=== PATIENT | female | born 1995 | race Caucasian/White ===

== ENCOUNTER → 2017-08-22 10:40 | Outpatient (CLI) | payer MEDICAID, SELFPAY ==
--- NOTE | 2017-08-22 10:40 | DT_ITS ---
This patient was seen during an EMR downtime August 22, 2017 - August 29, 2017. This patient may have a combination of paper and electronic documentation or all paper documentation. All documentation is viewable within the e-chart portion of [employer] for each patient visit.
[2017-09-07 10:45] LABS: HPV Reflexed? NOT INDICATED
== END ==
PROVIDERS: Visit Provider Obstetrics & Gynecology
DX: Z12.4 Encounter for screening for malignant neoplasm of cervix (principal)
CPT/HCPCS: 88175; G0145

== ENCOUNTER → 2018-09-12 17:21 | Outpatient (CLI) | payer MEDICAID, SELFPAY ==
[2018-09-27 17:25] LABS: HPV HC, High Risk Positive (Negative)
[2018-10-01 14:32] LABS: HPV Reflexed? YES, CHARGE PATIENT
== END ==
PROVIDERS: Family Provider Nurse Practitioner; PCP Nurse Practitioner; Referring Provider Obstetrics & Gynecology; Visit Provider Obstetrics & Gynecology
DX: Z12.4 Encounter for screening for malignant neoplasm of cervix (principal)
CPT/HCPCS: 87624; 88175; G0145

== ENCOUNTER → 2019-09-28 | Outpatient (CLI) | payer MEDICAID, SELFPAY ==
[2015-06-20 01:48] VITALS: BMI 33.5
[2019-10-05 01:04] LABS: Trich. Vag By Nucleic Acid AMP N
[2019-10-05 18:05] LABS: HPV Reflexed? NOT INDICATED
== END | disposition home or self-care (01) ==
LOC: LABSPEC 10:04
PROVIDERS: PCP Nurse Practitioner; Visit Provider Obstetrics & Gynecology
DX: Z12.4 Encounter for screening for malignant neoplasm of cervix (principal)
CPT/HCPCS: 87491; 87591; 88175; G0145

== ENCOUNTER → 2019-11-01 13:28 | Outpatient (CLI) | payer MEDICAID, SELFPAY ==
[2015-06-20 01:48] VITALS: BMI 33.5
[2019-11-03 03:06] LABS: Chlamydia By Nucleic Acid AMP Negative (Negative)
[2019-11-03 08:20] LABS: Gonococcus By Nucleic Acid AMP Negative (Negative)
== END ==
PROVIDERS: PCP Nurse Practitioner; Visit Provider Obstetrics & Gynecology
DX: Z11.3 Encounter for screening for infections with a predominantly sexual mode of transmission (principal)
CPT/HCPCS: 87491; 87591

== ENCOUNTER → 2019-11-16 11:47 | Outpatient (CLI) | payer MEDICAID, SELFPAY ==
[2015-06-20 01:48] VITALS: BMI 33.5
[2019-11-16 12:13] LABS: Absolute Lymphocyte Count 1.71 X10^3/uL (0.83-4.51); Absolute Neutrophil Count 6.2 X10^3/uL (2.0-7.7); Basophil# 0.02 X10^3/uL; Basophil% 0.2 % (0-1); Eosinophil# 0.06 X10^3/uL; Eosinophils% 0.7 % (0-5); Hematocrit 34.6 % (37-47); Hemoglobin 11.9 g/dL (12.0-15.0); Lymphocyte # 1.71 X10^3/ul (4.0); Lymphocyte % 19.6 % (19-41); Mean Corp Hgb Conc 34.4 g/dL (32-36); Mean Corpuscular Hgb 30.3 pg (27.0-32.0); Mean Platelet Vol. 10.4 fl (6.2-12.0); Monocyte# 0.69 X10^3/uL; Monocyte% 7.9 % (0-10); NRBC Flagged by Analyzer 0 % (0-5); Neutrophil # 6.23 X10^3/uL (2.7-7.7); Neutrophil % 71.3 % (47-70); Platelet Count 254 K/mm3 (150-450); RBC Distribution Width CV 11.5 % (11.6-14.6); RBC Distribution Width SD 37.1 fl (35.1-43.9); Red Blood Count 3.93 M/mm3 (4.2-5.4); White Blood Count 8.7 K/mm3 (4.4-11.0)
[2019-11-16 12:22] LABS: Color, Urine Yellow (Yellow); Glucose, Dipstick Normal (Normal); Ketone-Dipstick Negative (Negative); Leukocyte Esterase-Dipstick Negative /ul (Negative); Nitrite-Dipstick Negative (Negative); Occult Blood-Urine Negative /ul (Negative); Protein-Dipstick Negative (Negative); Specific Gravity, Urine 1.015 (1.002-1.030); Urine Bilirubin Dipstick Negative (Negative); Urine Clarity Sl. Cloudy (Clear); Urine Urobilinogen 1 mg/dl (Normal)
[2019-11-16 12:47] LABS: Amphetamine Urine VISTA NEGATIVE (<1000 ng/mL); Barbiturate Urine VISTA NEGATIVE (< 200 ng/mL); Benzodiazepine Urine VISTA NEGATIVE (< 200 ng/mL); Cocaine Urine VISTA NEGATIVE (< 300 ng/mL); Ecstacy Urine VISTA NEGATIVE (< 500 ng/mL); Methadone Urine VISTA NEGATIVE (< 300 ng/mL); PCP Urine VISTA NEGATIVE (< 25 ng/mL); THC Urine VISTA NEGATIVE (< 50 ng/mL); Vista UDS pH Range 7
[2019-11-16 12:53] LABS: Thyroid Stim Hormone (TSH) 0.65 uIU/mL (0.358-3.74)
[2019-11-16 13:55] LABS: HIV - WCH Non-Reactive (Nonreactive); Hepatitis B Surface Antigen Non-Reactive (Nonreactive); Hepatitis C Antibody Non-Reactive (Nonreactive); Rubella IgG 236.6 IU/mL
[2019-11-22 06:28] LABS: Prenatal RPR NONREACTIVE (NONREACTIVE)
== END ==
PROVIDERS: PCP Nurse Practitioner; Visit Provider Obstetrics & Gynecology
DX: Z34.81 Encounter for supervision of other normal pregnancy, first trimester (principal)
CPT/HCPCS: 36415; 80307; 81002; 84443; 85025; 86703; 86762; 86803; 87340

== ENCOUNTER → 2020-01-10 | Outpatient (CLI) | payer MEDICAID, SELFPAY ==
[2015-06-20 01:48] VITALS: BMI 33.5
--- NOTE | 2020-01-10 | IMM_PTH ---
PATIENT: TWIN HANNA LOC: [facility] U#:[id number] AGE/SX: 24/F ROOM: RE01/10/[address]: Dr. Anastasiya Bundy DO : 1995 BED: DIS: 01/10/2020 SPEC #: [id number] RECD: 01/14/20 13:29 STATUS: ASTRID REQ #: [id number] MAIDA: 01/10/20 00:[address]: Anastasiya Bundy DEPT: IMMUNOHISTOCHEMISTRY RECD BY: Diana Barragan ENTERED: 01/14/20 13:32 SP TYPE: IMMUNO OTHR DR: Kiara Amaral, EKG TECHNICIAN-C Tissues: Uterine cervix, NOS Procedures: p16 (initial) KI-67 (add) PHYSICIAN & INSTITUTION [place] [id number] SPECIMEN INFORMATION: Tissue Source: Cervical biopsy 6 o'clock Clinical Info: [facility] Specimen Number: [id number] CPT code: 22211, 39404 METHODOLOGY: Deparaffinized sections of prefer/formalin-fixed tissue or PAP/DQ stained slides are incubated with monoclonal/polyclonal antibodies/oligonucleotide probes. Localization is made via biotin free immunoperoxidase method. Appropriate controls are performed and reacted as expected. Results on target cell population are indicated in the following table: RESULTS: ANTIBODY / CLONE RESULT P16 (E6H4) negative Ki-67 (30-9) negative These tests were developed and their performance characteristics determined by [facility]. They may not have been cleared or approved by the U.S. Food and Drug Administration. The FDA has determined that such clearance or approval is not necessary. The above immunohistochemical/dualISH markers are ordered and reviewed by the Pathologist. INTERPRETATION: Cervix, 6 o'clock, biopsy: Focal minimal changes suspicious for HPV cytopathic effects. ASAD:francisca 01/15/20
--- NOTE | 2020-01-10 12:05 | CER_PTH ---
PATIENT: TWIN HANNA LOC: [facility] #:[id number] AGE/SX: 24/F ROOM: RE01/10/[address]: Dr. Anastasiya Bundy, : 1995 BED: DIS: 01/10/2020 SPEC #: [id number] RECD: 01/10/20 15:00 STATUS: ASTRID KAE #: [id number] MAIDA: 01/10/20 12:[address]: Anastasiya Bundy DEPT: SURGICAL PATHOLOGY RECD BY: Mei Isabel ENTERED: 01/11/20 07:35 SP TYPE: CERV OTHR DR: Kiara Amaral, TEXTILE TECHNICAL OFFICER-C Tissues: Uterine cervix, NOS Procedures: Surgery Specimen Level IV HEADER OPERATION: Colposcopy PRE-OP DIAGNOSIS: LGSIL pap, 16 weeks TISSUE SUBMITTED: Cervical biopsy 6 o'clock MICROSCOPIC DIAGNOSIS Cervix, 6 o'clock, biopsy: Focal minimal changes suspicious for HPV cytopathic effects. Acute and chronic inflammation and decidual changes. See comment. ASAD:francisca 01/14/20 COMMENT Results for immunohistochemistry ([id number]) for surrogate marker (p16) will be reported separately. The specimen predominantly consists of endocervical mucosa with scant ectocervical mucosa. This case has been reviewed in consultation who concurs with the above diagnsosi. MICROSCOPIC DESCRIPTION Slides are reviewed. GROSS DESCRIPTION Received in fixative is one container labeled with the patient's name and designated cervical biopsy. The specimen consists of one irregular fragment of light jauregui soft tissue that measures 0.5 x 0.5 x 0.2 cm. The specimen is totally submitted in one cassette. / ASAD:francisca 01/11/20 TC:5 [facility]: [id number]
== END | disposition home or self-care (01) ==
LOC: LABSPEC 13:34
PROVIDERS: PCP Nurse Practitioner; Visit Provider Student in an Organized Health Care Education/Training Program
DX: O26.892 Other specified pregnancy related conditions, second trimester (principal); R87.612 Low grade squamous intraepithelial lesion on cytologic smear of cervix (LGSIL); Z3A.16 16 weeks gestation of pregnancy
CPT/HCPCS: 88305; 88341; 88342

== ENCOUNTER → 2020-03-31 09:01 | Outpatient (CLI) | payer MEDICAID, SELFPAY ==
[2020-03-31 11:10] LABS: Hematocrit 30.9 % (37-47); Hemoglobin 10.4 g/dL (12.0-15.0); Mean Corp Hgb Conc 33.7 g/dL (32-36); Mean Corpuscular Hgb 29.2 pg (27.0-32.0); Mean Corpuscular Volume 86.8 fL (81-99); Platelet Count 228 K/mm3 (150-450); RBC Distribution Width CV 11.5 % (11.6-14.6); RBC Distribution Width SD 36.7 fl (35.1-43.9); Red Blood Count 3.56 M/mm3 (4.2-5.4); White Blood Count 6.9 K/mm3 (4.4-11.0)
[2020-03-31 11:25] LABS: Glucose Challenge Gest 1H 50g 125 mg/dL (70-140)
== END ==
PROVIDERS: PCP Nurse Practitioner; Visit Provider Student in an Organized Health Care Education/Training Program
DX: Z34.82 Encounter for supervision of other normal pregnancy, second trimester (principal)
CPT/HCPCS: 36415; 82950; 85027

== ENCOUNTER → 2020-06-03 | Outpatient (CLI) | payer MEDICAID, SELFPAY ==
[2015-06-20 01:48] VITALS: BMI 33.5
== END | disposition home or self-care (01) ==
LOC: LABSPEC 14:49
PROVIDERS: PCP Nurse Practitioner; Visit Provider Student in an Organized Health Care Education/Training Program
DX: Z36.85 Encounter for antenatal screening for Streptococcus B (principal)
CPT/HCPCS: 87081

== ENCOUNTER 2020-06-23 03:40 | Inpatient (IN) | payer MEDICAID, SELFPAY ==
[2015-06-20 01:48] VITALS: BMI 33.5
[2020-06-23] VITALS (49 sets, daily range): BP systolic 107–136; BP diastolic 53–84; PULSE 67–95; RESP 18; TEMP 36.2–37.3; O2SAT 90–100; BMI 34.0
[2020-06-23] MEDS: Lactated Ringers 1,000 ML 50 ML IV (03:50)
[2020-06-23] MEDS: Lactated Ringers 500 ML 999 ML IV ×3 (04:05→08:29)
[2020-06-23 04:11] LABS: Absolute Lymphocyte Count 1.56 X10^3/uL (0.83-4.51); Absolute Neutrophil Count 5.5 X10^3/uL (2.0-7.7); Basophil# 0.02 X10^3/uL; Basophil% 0.3 % (0-1); Eosinophil# 0.05 X10^3/uL; Eosinophils% 0.6 % (0-5); Hematocrit 33.8 % (37-47); Hemoglobin 11.1 g/dL (12.0-15.0); Lymphocyte # 1.56 X10^3/ul (4.0); Lymphocyte % 19.5 % (19-41); Mean Corp Hgb Conc 32.8 g/dL (32-36); Mean Corpuscular Volume 82.2 fL (81-99); Mean Platelet Vol. 12.2 fl (6.2-12.0); Monocyte# 0.85 X10^3/uL; Monocyte% 10.7 % (0-10); NRBC Flagged by Analyzer 0 % (0-5); Neutrophil # 5.46 X10^3/uL (2.7-7.7); Neutrophil % 68.4 % (47-70); Platelet Count 171 K/mm3 (150-450); RBC Distribution Width CV 12.9 % (11.6-14.6); RBC Distribution Width SD 38.7 fl (35.1-43.9); Red Blood Count 4.11 M/mm3 (4.2-5.4)
[2020-06-23] MEDS: fentaNYL-bupivacaine (epidural) 100 ML BAG EPIDURAL ×2 (05:26→09:57)
[2020-06-23] MEDS: Terbutaline 1 MG/ML Vial 0.25 MG SC (06:16)
--- NOTE | 2020-06-23 07:22 | PCM.HPOB.BLA ---
History and Physical Date of Admission: 06/23/20 HPI: 24 yo at 39/4w, KELIN 06/26/20 by 9w US, admitted in labor. Denies LOF, VB. +FM. Reports contractions starting Tuesday morning around 0830. This is complicated by: resolved partial previa, marginal cord insertion. LSIL with colposcopy in . Depression. Obstetrical History G1: 39w G2: current Past Medical History Depression, LSIL Medications PNV, zoloft Past Surgical History Denies Social History Tobacco use: former, quit last year Alcohol use: denies Illicit drug use: denies Labs Blood type: B pos Rubella: immune Hep B/C: neg/neg HIV: neg RPR: nonreactive GBS: neg 06/03 Allergies NKDA Review of Systems General: alert and oriented HEENT: _denies change of vision Heart/lungs: _denies CP, SOB GI: _denies nausea, vomiting, dysuria, diarrhea MSK: _denies calf pain, tenderness Physical Exam Vital Signs Temp Pulse BP Pulse Ox 06/23/20 07:13 93 100 06/23/20 07:12 97.9 F 85 124/68 H 100 06/23/20 06:27 97.2 F L 95 113/59 L 98 06/23/20 06:05 79 100 06/23/20 06:00 79 99 06/23/20 05:56 87 111/58 L 06/23/20 05:55 98 06/23/20 05:50 83 99 06/23/20 05:47 82 131/60 H 06/23/20 05:46 90 06/23/20 05:45 71 100 06/23/20 05:40 94 107/58 L 96 06/23/20 05:35 94 108/53 L 97 06/23/20 05:31 77 119/57 L 06/23/20 05:30 96 06/23/20 05:26 89 113/63 06/23/20 05:25 97 06/23/20 05:22 75 131/68 H 06/23/20 05:21 78 133/77 H 06/23/20 05:20 99 06/23/20 05:15 81 130/82 H 98 06/23/20 05:11 83 129/76 H 06/23/20 05:10 80 100 04/05/21 05:07 82 132/77 H 06/23/20 05:05 87 99 06/23/20 05:00 82 100 06/23/20 03:22 98.2 F 76 131/84 H 98 General: a&o x3, NAD HEENT: normocephalic, atraumatic Cardio: no JVD Resp: no increased work in breathing Abdomen: soft, gravid, nontender Extremities: _minimal-moderate edema CE: 4 cm on admission per RN FHT: 150/mod elenita/+accel/+occasional late and variable decelerations Sisters: q 4 min Labs Laboratory Results - last 24 hr 06/23/20 06/23/20 03:50 03:50 WBC 8.0 RBC 4.11 L Hgb 11.1 L Hct 33.8 L MCV 82.2 MCH 27.0 MCHC 32.8 RDW Std Deviation 38.7 RDW Coeff of Elenita 12.9 Plt Count 171 MPV 12.2 H Immature Gran % (Auto) 0.500 Neut % (Auto) 68.4 Lymph % (Auto) 19.5 [place] % (Auto) 10.7 H Eos % (Auto) 0.6 Baso % (Auto) 0.3 Absolute Neuts (auto) 5.5 Absolute Lymphs (auto) 1.56 Nucleated RBC % 0 Blood Type B POSITIVE Antibody Screen NEGATIVE Assessment & Plan 24 yo at 39/4w, KELIN 06/26/20 by 9w US, admitted in labor. Denies LOF, VB. +FM. This is complicated by: resolved partial previa, marginal cord insertion. LSIL with colposcopy in . Depression. Admit to L&D - Routine labor orders - GBS neg - CEFM - Anesthesia to see AROM scant clear fluid this morning around 0600. FSE placed CE at that time 7 cm. Prolonged deceleration with tony of 80-90s for 9 minutes. Terbutaline given, O2, bolus, and position change. Resolved. CE unchanged at 7 cm at that time. Discussed with patient at bedside. At 0652 deceleration to tony of 60s for 4 minutes, CE 8 cm. Resolved with position changes. status now stable and reassuring. Patient is multiparous and making cervical change. Variability has been moderate throughout. Will continue expectant management. Discussed with patient that if HR were to decel and not recover this would lead to section. Patient and partner express understanding.
[2020-06-23] MEDS: Lactated Ringers 1,000 ML 200 ML IV (09:02)
[2020-06-23] MEDS: Amnioinfusion- 0.9% NS 1,000 ML IV.SOLN. INTRA-UTER (09:21)
--- NOTE | 2020-06-23 09:37 | PCM.PN.BLA ---
Progress Note Patient seen and evaluated. Intermittent variable decelerations. 4 minute deceleration to tony of 70s, resolve spontaneously. CE 9/80/-1. Unable to reduce anterior cervix on exam. Patient with moderate variability, making cervical change. Amnioinfusion started. Continue expectant management. 115/mod cristin/ +accel/no decel, toco q4. All questions answered. Patient desires continuation of labor as opposed to c/s. STROKE Vital Signs/Narrative: Vital Signs Temp Pulse BP Pulse Ox 06/23/20 09:26 98.4 F 06/23/20 09:20 98.5 F 74 117/65 06/23/20 08:21 97.9 F 82 118/69 100 06/23/20 07:13 93 100 06/23/20 07:12 97.9 F 85 124/68 H 100 06/23/20 06:27 97.2 F L 95 113/59 L 98 06/23/20 06:05 79 100 06/23/20 06:00 79 99 06/23/20 05:56 87 111/58 L 06/23/20 05:55 98 06/23/20 05:50 83 99 06/23/20 05:47 82 131/60 H 06/23/20 05:46 90 06/23/20 05:45 71 100 06/23/20 05:40 94 107/58 L 96
[2020-06-23] MEDS: Oxytocin 30 units/NS 500 ml 30 UNITS/500 ML IV.SOLN 334 UNITS IV (12:12)
--- NOTE | 2020-06-23 12:24 | PCM.OPRPT ---
Vaginal Delivery Maternal Presentation: Active Labor Amniotic Membrane Rupture Type: Artificial Amniotic Fluid Description: Clear Final KELIN: 06/25/20 Final KELIN Source: US <20 weeks Gestational age: 39 Weeks and 5 Days Date of Procedure: 06/23/20 Pre-Operative Diagnosis: Kirby intrauterine Post-Operative Diagnosis: Kirby intrauterine Surgery/ Procedure Performed: Spontaneous Vaginal Delivery Type of Anesthesia: Epidural Description of Procedure: Spontaneous vaginal delivery viable infant male. Nuchal cord x1, loose, reduced. Baby to mom. Cord clamped and cut. Spontaneous delivery of placenta. No lacerations. EBL 300cc. Cord Vessel Description: 3 Vessels Cord Gases drawn per routine: VBG Infant A gender: Male (1 minute): 8 (5 minute): 9
--- NOTE | 2020-06-23 12:26 | DCINST_ITS ---
Discharge Diet: No Restrictions Discharge Activity: Return to Normal Activity, May Shower May resume sexual activity in: 4-6 weeks Weight Bearing Status: Weight bearing as tolerated Call your doctor if you observe: Fever of 101 or Higher, Inability to urinate, I nability to have a bowel movement, Using more than one pad per hour, Shortness of breath, Dizziness, Increased palpitations (irregular heartbeat), Uncontrolled pain Additional Instructions: If you experience any of the following, contact your healthcare provider. * Bleeding that soaks a pad every hour for 2 hours * Fever 100.4 or higher * Unrelieved incision or abdominal pain * Swelling, redness, discharge or bleeding from your incision or episiotomy site * Your incision begins to separate * Problems urinating (including inability to urinate or burning while urinating). * Visual changes * Severe headache * Flu-like symptoms * Pain or redness in one of both of your breasts * Pain, warmth, tenderness or swelling in your legs, especially the calf area * Frequent nausea and vomiting * Symptoms of depression or anxiety If you experience any of the following, call 911 or go to the nearest Emergency Room. * Chest pain * Problems breathing * Seizure activity * Partial or complete paralysis of a body part, slurred speech, weakness or drooping of the face, or a sudden inability to walk or hold your balance Allergies/Adverse Reactions: Allergies No Known Allergies Allergy (Verified 06/23/20 03:13) Medications to take at Discharge Pnv No.95/Ferrous Fum/Folic AC [ Caplet] 1 tablet PO DAILY 06/23/20 Sertraline HCl [Zoloft] 100 mg PO DAILY 06/23/20 Please Follow Up With: Anastasiya Bundy DO When: 2 week telehealth visit, 6 week Primary Care Physician: Kiara Amaral NP, WINDROWER OPERATOR-C [Primary Care Provider] - Test Results: Test results from this visit will be discussed in further detail at your follow- up appointment, if applicable.
--- NOTE | 2020-06-23 12:26 | PCM.DCVAG ---
Discharge Diet: No Restrictions Discharge Activity: Return to Normal Activity, May Shower May resume sexual activity in: 4-6 weeks Weight Bearing Status: Weight bearing as tolerated Call your doctor if you observe: Fever of 101 or Higher, Inability to urinate, Inability to have a bowel movement, Using more than one pad per hour, Shortness of breath, Dizziness, Increased palpitations (irregular heartbeat), Uncontrolled pain Additional Instructions: If you experience any of the following, contact your healthcare provider. Bleeding that soaks a pad every hour for 2 hours Fever 100.4 or higher Unrelieved incision or abdominal pain Swelling, redness, discharge or bleeding from your incision or episiotomy site Your incision begins to separate Problems urinating (including inability to urinate or burning while urinating). Visual changes Severe headache Flu-like symptoms Pain or redness in one of both of your breasts Pain, warmth, tenderness or swelling in your legs, especially the calf area Frequent nausea and vomiting Symptoms of depression or anxiety If you experience any of the following, call 911 or go to the nearest Emergency Room. Chest pain Problems breathing Seizure activity Partial or complete paralysis of a body part, slurred speech, weakness or drooping of the face, or a sudden inability to walk or hold your balance Allergies/Adverse Reactions: Allergies No Known Allergies Allergy (Verified 06/23/20 03:13) Medications to take at Discharge Pnv No.95/Ferrous Fum/Folic AC [ Caplet] 1 tablet PO DAILY 06/23/20 Sertraline HCl [Zoloft] 100 mg PO DAILY 06/23/20 Please Follow Up With: Anastasiya Bundy DO When: 2 week telehealth visit, 6 week Primary Care Physician: Kiara Amaral IRRIGATOR OVERHEAD, IRRIGATOR OVERHEAD-C [Primary Care Provider] - Test Results: Test results from this visit will be discussed in further detail at your follow-up appointment, if applicable.
[2020-06-23] MEDS: 0.9% Saline Lock 10 ML Syringe IV (14:53)
[2020-06-23] MEDS: Sertraline 100 MG Tablet PO (14:54)
[2020-06-23] MEDS: Acetaminophen 500 MG Tablet 1000 MG PO (20:04)
[2020-06-24 00:57] VITALS: BP 116/58; PULSE 77; RESP 16; TEMP 37.2; O2SAT 95
[2020-06-24] MEDS: Ibuprofen 600 MG Tablet PO (02:40)
[2020-06-24 05:30] VITALS: BP 123/76; PULSE 68; RESP 16; TEMP 37.1; O2SAT 95
[2020-06-24 07:59] VITALS: BP 117/80; PULSE 68; RESP 16; TEMP 36.3; O2SAT 98
--- NOTE | 2020-06-24 08:21 | PCM.PN.OB ---
Subjective: day 1. Doing well. Lochia minimal. Bottlefeeding. - Physical Exam Vitals/I&O's: Vital Signs Temp Pulse Resp BP Pulse Ox 97.3 F L 68 16 117/80 98 06/24/20 07:59 06/24/20 07:59 06/24/20 07:59 06/24/20 07:59 06/24/20 07:59 Oxygen Delivery Method Room Air Weight: 84.277 kg Body Mass Index (BMI) 34.0 Intake and Output for Last 24 Hours 06/22/20 06/23/20 06/24/20 23:59 23:59 23:59 Intake Total 5668.33 / 5668.33 Output Total 3350 / 3350 600 / 600 Balance 2318.33 / 2318.33 -600 / -600 General: Alert, Oriented x3, No apparent distress HEENT: Atraumatic, Normocephalic Neck: Supple Lungs: Normal air movement Cardiovascular: Regular rate Abdomen: Soft - Uterus 2 cm below umbilicus Extremities: No edema Neurological: Cranial nerves II-XII grossly intact Psych/Mental Status: Normal Affect, Appropriate Microbiology Past 72 Hours 06/23/20 04:10 Mucosa - Nose SARS-CoV-2 Antigen (Rapid) - Final Current Medications Acetaminophen (Acetaminophen 500 Mg Tablet) 1,000 mg PO Q8H PRN PRN PRN Reason: Pain Score 1-3 Last Admin: 06/23/20 20:04 Dose: 1,000 mg Documented by: Bisacodyl (Bisacodyl 10 Mg Suppository) 10 mg RC UD PRN PRN Reason: If no BM Dibucaine (Dibucaine 30 Gm Tube) 1 applic TOPICAL TID PRN PRN; Protocol PRN Reason: Discomfort Hydrocortisone (Hydrocortisone 2.5% Crm) 1 applic TOPICAL TID PRN PRN; Protocol PRN Reason: Discomfort Ibuprofen (Ibuprofen 600 Mg Tablet) 600 mg PO Q6H PRN PRN PRN Reason: Pain Score 1-3 Last Admin: 06/24/20 02:40 Dose: 600 mg Documented by: Ondansetron HCl (Ondansetron 4 Mg/2 Ml Vial) 4 mg IV Q4H PRN PRN PRN Reason: Nausea Senna/Docusate Sodium (Senna/Docusate Sodium 1 Tablet) 1 - 2 tablet PO DAILY PRN PRN PRN Reason: Constipation Sertraline HCl (Sertraline 100 Mg Tablet) 100 mg PO DAILY BENJAMÍN Last Admin: 06/23/20 14:54 Dose: 100 mg Documented by: Simethicone (Simethicone 80 Mg Tablet) 80 mg PO PCHS PRN PRN Reason: Indigestion/Stomach pain Sodium Chloride (0.9% Saline Lock 10 Ml Syringe) 5 - 15 ml IV UD PRN PRN Reason: SALINE FLUSH Last Admin: 06/23/20 14:53 Dose: 10 ml Documented by: Zolpidem Tartrate (Zolpidem Tartrate 5 Mg Tablet) 5 mg PO QHS PRN PRN PRN Reason: Insomnia Medical Necessity - Tobacco Use Smoking Status: Former smoker Assessment/Plan 24-year-old day 1 status post . Feeling well, bottlefeeding. Home today.
[2020-06-24] MEDS: Sertraline 100 MG Tablet PO (09:35)
[2020-06-24 11:55] VITALS: BP 118/69; PULSE 68; RESP 16; TEMP 36.8; O2SAT 98
[2020-06-24] MEDS: Acetaminophen 500 MG Tablet 1000 MG PO (13:04)
--- NOTE | 2020-06-24 15:26 | CASEMGMT ---
Social Work Assessment Labor and Delivery Unit Patient [address]: [address] [place] [address] Phone number:[phone] Date of Referral: 06.23.2020 Time of Referral: 1514 Referred By: Dr. Jacobson Date of Intervention: 06.24.2020 Time of Intervention: 1250 Reason for Referral: Maternal history of depression and anxiety History obtained from: Medical records and mother of baby (MOB) Lesia Cobian; father of baby (FOB) Nicola Shirley present for part of conversation. Household composition: MOB and FOB live together. MOB's 5 year old son lives there fulltime. FOB's 5 year old daughter visits every other weekend. Home situation reported as safe and adequate. Patient's parent/guardian status: KRISTI is a 24 year old single female, involved with the FOB who is 33 years old for 1.5 years. KRISTI denies any abuse or safety concerns in this relationship. baby is the first for MOB and FOB together. [place] is German Shirley, born on 06.23.2020. KRISTI's older son is Flavio Bass, born on 06.20.2015. Flavio has regular visitation with this father. Medical History: KRISTI is G2, P1 to 2 after delivering German. care adequate and starting in the first trimester. Infant born fullterm at 7 pounds 1 ounce. Apgars 8 and 9 at 1 and 5 minutes of life. Educational Status: KRISTI graduated from the [employer], no issues with reading, writing or learning comprehension reported. Financial Status: KRISTI reports to work in an office. FOB is also employed full-time. Supplies: Parents report to have needed supplies including a safe sleep space and a car. Baby is being formula fed and no reported concerns with obtaining formula. Childcare/Caregiver(s): MOB and FOB. Has a capsule machine operator lined up after maternity leave. Transportation: NO reported concerns. Programs/Agencies Involved: Involved with [employer] and with WIC. Head start for older child, as well as counseling. Children Services/Legal Issues: Denies past or present. Behavioral Health Issues: Mental Health History: Maternal history of depression and anxiety. Depression screening during at score of 8 on PHQ9 (7) and a score of 11 on the Mobile screen (8.). Mobile score during social work intervention on 06.24.2020 as score of 9, see attached link. MOB reports to feel her depression is manageable at present, with anxiety over nothing being more prominent. MOB reports to cope by taking some quiet time, even it is for 20 minutes a day. MOB denies any history of suicidal ideation or attempts. Currently on Zoloft and plans to remain on this in the period. Substance Use History: MOB denies. Drug Screens: Maternal drug screen negative on 11.16.2019. Family/Social Stressors/Life Changes: Unplanned but accepted . occurring shortly after moving in with the FOB. COVID pandemic. Older son is in counseling. Support Systems: FOB and MOB's parents. MOB reports her go to for emotional support is the FOB. Depression/Shaken Baby/Safe Sleeping: Information provided on all topics. Educated both parent to mood and anxiety disorders, risk factors, resources, as well as fathers also being a risk. ASSESSMENT: Met with MOB and FOB in room. Introduced to self and social work role. Baby sleeping soundly in the bedside crib. Noted MOB to gaze at baby intermittently. MOB reports to feel a loving connection to the baby, no concerns with bonding. MOB plans to remain on antidepressant medications in the period. Parents report to have supplies to care for baby. FOB will be off of work for another day or so to help MOB with transition home. MOB's parents live close by and are another option for support if needed. Parents both engaged in conversation, pleasant, and cooperative. No voiced concerns by nursing staff regarding parent/child interactions or bonding. Provide with resources for mood and anxiety disorders, as well as a [facility] resource list. Information on Help Me Grow, [facility] nurse visit program, safe sleeping,and shaken baby prevention. PLAN: MOB and baby to discharge home when ready. Resources provided. No other services requested or indicated. -LAUREN Laurent, VAN *Information documented in this assessment generated with [employer] System*
== END 2020-06-24 14:25 | disposition home or self-care (01) | DRG 560 ==
LOC: WPOUT 03:43 → WP 03:43
PROVIDERS: Admitting Provider Student in an Organized Health Care Education/Training Program; PCP Nurse Practitioner; Referring Provider Student in an Organized Health Care Education/Training Program; Visit Provider Student in an Organized Health Care Education/Training Program
DX: O76 Abnormality in fetal heart rate and rhythm complicating labor and delivery (principal); O69.81X0 Labor and delivery complicated by cord around neck, without compression, not applicable or unspecified; Z20.822 Contact with and (suspected) exposure to COVID-19; O99.344 Other mental disorders complicating childbirth; F32.9 Major depressive disorder, single episode, unspecified; K21.9 Gastro-esophageal reflux disease without esophagitis; Z79.899 Other long term (current) drug therapy; Z87.891 Personal history of nicotine dependence; Z3A.39 39 weeks gestation of pregnancy; Z37.0 Single live birth
CPT/HCPCS: 59025; 59050; 85025; 86850; 86900; 86901; 87426; 99218; J7030; J7120; A4216; G0378

== ENCOUNTER → 2020-08-19 | Outpatient (CLI) | payer MEDICAID, SELFPAY ==
[2020-06-23 03:12] VITALS: BMI 34.0
[2020-08-25 16:13] LABS: HPV APTIMA, High Risk Positive (Negative)
== END | disposition home or self-care (01) ==
LOC: LABSPEC 12:06
PROVIDERS: PCP Nurse Practitioner; Visit Provider Student in an Organized Health Care Education/Training Program
DX: Z12.4 Encounter for screening for malignant neoplasm of cervix (principal)
CPT/HCPCS: 87624; 88175; G0145

== ENCOUNTER → 2020-08-28 | Outpatient (CLI) | payer MEDICAID, SELFPAY ==
[2020-06-23 03:12] VITALS: BMI 34.0
[2020-09-01 05:06] LABS: Chlamydia By Nucleic Acid AMP Negative (Negative)
[2020-09-01 08:41] LABS: Gonococcus By Nucleic Acid AMP Negative (Negative)
== END | disposition home or self-care (01) ==
LOC: LABSPEC 14:33
PROVIDERS: PCP Nurse Practitioner; Visit Provider Student in an Organized Health Care Education/Training Program
DX: Z11.3 Encounter for screening for infections with a predominantly sexual mode of transmission (principal)
CPT/HCPCS: 87491; 87591

== ENCOUNTER → 2020-11-17 | Outpatient (CLI) | payer MEDICAID, SELFPAY ==
--- NOTE | 2020-11-17 | IMM_PTH ---
PATIENT: TWIN HANNA LOC: [facility] U#:[id number] AGE/SX: 25/F ROOM: RE11/17/[address]: Dr. Arthur Bundy MD : 1995 BED: DIS: 11/17/2020 SPEC #: [id number] RECD: 11/19/20 14:49 STATUS: ASTRID REQ #: [id number] MAIDA: 11/17/20 00:[address]: Arthur Bundy DEPT: IMMUNOHISTOCHEMISTRY RECD BY: Diana Barragan ENTERED: 11/19/20 14:50 SP TYPE: IMMUNO OTHR DR: Kiara Amaral, ADVISORY INTERNSHIP-C Tissues: A - Uterine cervix, NOS Procedures: p16 (initial) KI-67 (add) PHYSICIAN & INSTITUTION [place] [address] SPECIMEN INFORMATION: Tissue Source: A ? Cervical biopsies Clinical Info: LSIL, positive HPV Specimen Number: [id number] Matt CPT code: 16713, 86404 METHODOLOGY: Deparaffinized sections of prefer/formalin-fixed tissue or PAP/DQ stained slides are incubated with monoclonal/polyclonal antibodies/oligonucleotide probes. Localization is made via biotin free immunoperoxidase method. Appropriate controls are performed and reacted as expected. Results on target cell population are indicated in the following table: RESULTS: ANTIBODY / CLONE RESULT Block A P16 (E6H4) positive, focal and patchy Ki-67 (30-9) positive, low These tests were developed and their performance characteristics determined by [facility]. They may not have been cleared or approved by the U.S. Food and Drug Administration. The FDA has determined that such clearance or approval is not necessary. The above immunohistochemical/dualISH markers are ordered and reviewed by the Pathologist. INTERPRETATION: A. Cervix, biopsy: Focal changes consistent with HPV cytopathic effects. SJ:francisca 11/20/2020
--- NOTE | 2020-11-17 14:15 | CER_PTH ---
PATIENT: TWIN HANNA LOC: [facility] U#:[id number] AGE/SX: 25/F ROOM: RE11/17/[address]: Dr. Arthur Bundy MD : 1995 BED: DIS: 11/17/2020 SPEC #: [id number] RECD: 11/17/20 15:56 STATUS: ASTRID KAE #: [id number] MAIDA: 11/17/20 14:[address]: Arthur Bundy DEPT: SURGICAL PATHOLOGY RECD BY: Tequila Kapoor ENTERED: 11/18/20 08:58 SP TYPE: CERV OTHR DR: Kiara Amaral, CHAPITO Tissues: A - Uterine cervix, NOS B - Endocervical Procedures: Surgery Specimen Level IV HEADER OPERATION: Colposcopy PRE-OP DIAGNOSIS: LSIL, positive HPV TISSUE SUBMITTED: A ? Cervical biopsies, B - ECC MICROSCOPIC DIAGNOSIS A. Cervix, biopsy: Focal changes consistent with HPV cytopathic effects. Chronic inflammation and squamous metaplasia. See comment. B. ECC: Fragments of benign endocervical epithelium, blood and mucous, negative for dysplasia. ASAD:francisca 11/19/2020 COMMENT A. Immunohistochemistry ([id number]) for surrogate HPV marker (p16) supports the above diagnosis. Please make reference to previous specimen ([id number]) cervix, 6 o?clock, biopsy with diagnosis of ?minimal changes suspicious for HPV cytopathic effects.? MICROSCOPIC DESCRIPTION Slides are reviewed. GROSS DESCRIPTION A - Received in fixative is one container labeled with the patient's name and designated cervical biopsy. The specimen consists of multiple irregular fragments of jauregui soft tissue mixed with mucoid tissue that in aggregate measure 1 x 0.5 x 0.2 cm. The specimen is totally submitted in one cassette. B - Received in fixative is one container labeled with the patient's name and designated ECC. The specimen consists of multiple fragments of hemorrhagic mucoid tissue that in aggregate measure 3 x 2.5 x 0.2 cm. The specimen is totally submitted in one cassette. / ASAD:francisca 11/18/20 TC:5 CPT: 45166 x2
== END | disposition home or self-care (01) ==
LOC: LABSPEC 15:20
PROVIDERS: PCP Nurse Practitioner; Visit Provider Obstetrics & Gynecology
DX: R87.610 Atypical squamous cells of undetermined significance on cytologic smear of cervix (ASC-US) (principal); R87.612 Low grade squamous intraepithelial lesion on cytologic smear of cervix (LGSIL)
CPT/HCPCS: 88305; 88341; 88342

== ENCOUNTER → 2022-01-25 | Outpatient (CLI) | payer MEDICAID, SELFPAY ==
[2022-02-01 22:06] LABS: HPV Genotype 16, Aptima Positive (Negative)
[2022-02-02 14:26] LABS: HPV APTIMA, High Risk Positive (Negative); HPV Genotype 18,45 Aptima Negative (Negative)
== END | disposition home or self-care (01) ==
LOC: LABSPEC 10:13
PROVIDERS: PCP Nurse Practitioner; Visit Provider Student in an Organized Health Care Education/Training Program
DX: Z12.4 Encounter for screening for malignant neoplasm of cervix (principal)
CPT/HCPCS: 87624; 88175; G0145

== ENCOUNTER → 2022-03-16 | Outpatient (CLI) | payer MEDICAID, SELFPAY ==
--- NOTE | 2022-03-16 | IMM_PTH ---
PATIENT: TWIN HANNA LOC: [facility] U#:[id number] AGE/SX: 26/ ROOM: RE03/16/[address]: Dr. Anastasiya Bundy DO : 1995 BED: DIS: 03/16/2022 SPEC #: [id number] RECD: 03/17/22 13:08 STATUS: ASTRID RERaul #: [id number] MAIDA: 03/16/22 00:[address]: Anastasiya Bundy DEPT: IMMUNOHISTOCHEMISTRY RECD BY: Diana Barragan ENTERED: 03/17/22 13:09 SP TYPE: IMMUNO OTHR DR: Kiara Amaral, [facility] Tissues: A - Uterine cervix, NOS B - Uterine cervix, NOS C - Uterine cervix, NOS Procedures: p16 (initial) KI-67 (add) PHYSICIAN & INSTITUTION [place] [id number] SPECIMEN INFORMATION: Tissue Source: A - Cervix at 12 o?clock, B - Cervix at 5 o?clock, C - Cervix at 7 o?clock Clinical Info: Abnormal pap Specimen Number: [id number] A-C CPT code: 55825 x3, 95500 x3 METHODOLOGY: Deparaffinized sections of prefer/formalin-fixed tissue or PAP/DQ stained slides are incubated with monoclonal/polyclonal antibodies/oligonucleotide probes. Localization is made via biotin free immunoperoxidase method. Appropriate controls are performed and reacted as expected. Results on target cell population are indicated in the following table: RESULTS: ANTIBODY / CLONE RESULT Block A P16 (E6H4) positive, focal, patchy Ki-67 (30-9) positive, low Block B P16 (E6H4) positive, focal, patchy Ki-67 (30-9) positive, low Block C P16 (E6H4) positive, focal, patchy Ki-67 (30-9) negative These tests were developed and their performance characteristics determined by [facility]. They may not have been cleared or approved by the U.[place]. Food and Drug Administration. The FDA has determined that such clearance or approval is not necessary. The above immunohistochemical/dualISH markers are ordered and reviewed by the Pathologist. INTERPRETATION: A. Cervix at 12 o?clock, biopsy: Focal HPV change present. B. Cervix at 5 o?clock, biopsy: Focal HPV change present. C. Cervix at 7 o?clock, biopsy: Focal HPV change present. AM:francisca 03/18/2022
--- NOTE | 2022-03-16 | CER_PTH ---
PATIENT: TWIN HANNA LOC: [facility] U#:[id number] AGE/SX: 26/ ROOM: RE03/16/[address]: Dr. Anastasiya Bundy DO : 1995 BED: DIS: 03/16/2022 SPEC #: [id number] RECD: 03/16/22 11:27 STATUS: ASTRID KAE #: [id number] MAIDA: 03/16/22 00:[address]: Anastasiya Bundy DEPT: SURGICAL PATHOLOGY RECD BY: Mei Isabel ENTERED: 03/16/22 11:29 SP TYPE: CERV OTHR DR: Kiara Amaral, AMBULATORY SERVICES REPRESENTATIVE-C Tissues: A - Uterine cervix, NOS B - Uterine cervix, NOS C - Uterine cervix, NOS D - Endocervical Procedures: Surgery Specimen Level IV HEADER OPERATION: Colposcopy PRE-OP DIAGNOSIS: Abnormal pap TISSUE SUBMITTED: A ? 12 o?clock cervical biopsy, B ? 5 o?clock cervical biopsy, C ? 7 o?clock cervical biopsy, D - ECC MICROSCOPIC DIAGNOSIS A. Cervix at 12 o?clock, biopsy: Mild squamous dysplasia, JHONATHAN I (LSIL). Squamous metaplasia and chronic inflammation. See comment. B. Cervix at 5 o?clock, biopsy: Mild squamous dysplasia, JHONATHAN I (LSIL). Chronic inflammation. See comment. C. Cervix at 7 o?clock, biopsy: Focal HPV change suspected. Squamous metaplasia and mild chronic inflammation. See comment. D. Endocervix, curettings (cell block): Fragments of benign endocervix, inflamed. No evidence of dysplasia. AM:francisca 03/17/2022 COMMENT A-C. Results from immunohistochemistry ([id number]) for surrogate HPV marker (p16) will be reported separately. MICROSCOPIC DESCRIPTION Slides are reviewed. GROSS DESCRIPTION A - Received in fixative is one container labeled with the patient's name and designated cervical biopsy 12 o'clock. The specimen consists of one irregular fragment of light jauregui soft tissue that measures 0.3 x 0.3 x 0.1 cm. The specimen is totally submitted in one cassette. B - Received in fixative is one container labeled with the patient's name and designated cervical biopsy 5 o'clock. The specimen consists of one irregular fragment of light jauregui soft tissue that measures 0.5 x 0.3 x 0.1 cm. The specimen is totally submitted in one cassette. C - Received in fixative is one container labeled with the patient's name and designated cervical biopsy 7 o'clock. The specimen consists of one irregular fragment of light jauregui soft tissue that measures 0.5 x 0.5 x 0.1 cm. The specimen is totally submitted in one cassette. D - Received in fixative is one container labeled with the patient's name and designated ECC. The specimen consists of a scant amount of soft tissue. The specimen is totally submitted for cell block preparation. / SJ:francisca 03/16/2022 TC:3 CPT: 18640 x4
== END | disposition home or self-care (01) ==
LOC: LABSPEC 10:05
PROVIDERS: PCP Nurse Practitioner; Visit Provider Student in an Organized Health Care Education/Training Program
DX: R87.810 Cervical high risk human papillomavirus (HPV) DNA test positive (principal)
CPT/HCPCS: 88305; 88341; 88342